=== PATIENT | male | born 1960 | race Caucasian/White ===

== ENCOUNTER 2023-12-15 09:49 | Outpatient (CLI) | payer OTHER, SELFPAY | END 2023-12-15 09:50 | disposition home or self-care (01) | PROVIDERS: PCP Nurse Practitioner Family; Visit Provider Nurse Practitioner Family | DX: R51.9 Headache, unspecified (principal); Z12.5 Encounter for screening for malignant neoplasm of prostate | CPT/HCPCS: 85025; 85651; 86140; G0103 ==